=== PATIENT | male | born 2000 | race American Indian/Alaskan Native ===

== ENCOUNTER 2019-07-27 14:26 | Emergency (ER) | payer SELFPAY ==
--- NOTE | 2019-07-27 16:52 | Emergency Department Report ---
ED General Adult HPI - General Chief complaint: Psych Stated complaint: SI ATTEMPT Time Seen by Provider: 07/27/19 15:59 Source: EMS Mode of arrival: Ambulatory Limitations: No Limitations - History of Present Illness Initial comments: This is a 19-year-old man who lives with his mother. Apparently she must of called the police when he was found in the closet with a all collar around his neck I am told. Apparently he had a half empty bottle of ibuprofen. He admits to taking 4 pills. He also states that he drank half a bottle of DayQuil. He admits to depression for some time. He states he does not want to hurt himself now but apparently had some attempt prior. He denies any previous psychiatric hospitalizations. He denies counseling. He denies related medications. He denies any medical history. He is asymptomatic at the time of my encounter. -: month(s) Severity scale (0 -10): 0 Associated Symptoms: denies other symptoms - Related Data Allergies Allergy/AdvReac Type Severity Reaction Status Date / Time No Known Allergies Allergy Unverified 07/27/19 16:33 ED Review of Systems ROS: Stated complaint: SI ATTEMPT Other details as noted in HPI Constitutional: denies: chills, fever Eyes: denies: eye pain, eye discharge, vision change ENT: denies: ear pain, throat pain Respiratory: denies: cough, shortness of breath, wheezing Cardiovascular: denies: chest pain, palpitations Endocrine: no symptoms reported Gastrointestinal: denies: abdominal pain, nausea, diarrhea Genitourinary: denies: urgency, dysuria Musculoskeletal: denies: back pain, joint swelling, arthralgia Skin: denies: rash, lesions Neurological: denies: headache, weakness, paresthesias Psychiatric: depression, suicidal thoughts. denies: anxiety Hematological/Lymphatic: denies: easy bleeding, easy bruising ED Past Medical Hx - Past Medical History Previous Medical History?: No - Surgical History Past Surgical History?: No - Social History Smoking Status: Never Smoker Substance Use Type: None ED Physical Exam - General Limitations: No Limitations General appearance: alert, in no apparent distress - Head Head exam: Present: atraumatic, normocephalic - Eye Eye exam: Present: normal appearance. Absent: scleral icterus - ENT ENT exam: Present: mucous membranes moist - Neck Neck exam: Present: normal inspection. Absent: tenderness, meningismus - Respiratory Respiratory exam: Present: normal lung sounds bilaterally. Absent: respiratory distress - Cardiovascular Cardiovascular Exam: Present: regular rate, normal rhythm. Absent: systolic murmur, diastolic murmur, rubs, gallop - GI/Abdominal GI/Abdominal exam: Present: soft, normal bowel sounds. Absent: distended, tenderness, guarding, rebound, rigid - Rectal Rectal exam: Present: deferred - Extremities Exam Extremities exam: Present: normal inspection - Back Exam Back exam: Present: normal inspection - Neurological Exam Neurological exam: Present: alert, oriented X3, CN II-XII intact. Absent: motor sensory deficit - Psychiatric Psychiatric exam: Present: depressed, flat affect - Skin Skin exam: Present: warm, dry, intact, normal color. Absent: rash ED Course Vital Signs 07/27/19 15:30 Temperature 98.1 F Pulse Rate 69 Respiratory 16 Rate Blood Pressure 109/66 [Right] O2 Sat by Pulse 99 Oximetry - Reevaluation(s) Reevaluation #1: 1013 is executed. It is anticipated that the patient will be medically cleared. He is clinically stable at this time. 07/27/19 16:51 ED Medical Decision Making - Lab Data Result diagrams: 07/27/19 16:53 07/27/19 16:53 Laboratory Results - last 24 hr 07/27/19 07/27/19 07/27/19 16:33 16:33 16:53 WBC 7.2 RBC 4.17 Hgb 12.9 Hct 38.1 MCV 91 MCH 31 MCHC 34 RDW 12.4 L Plt Count 281 Lymph % (Auto) 20.8 Iron % (Auto) 4.9 Eos % (Auto) 0.1 Baso % (Auto) 0.5 Lymph # 1.5 Iron # 0.4 Eos # 0.0 Baso # 0.0 Seg Neutrophils % 73.7 H Seg Neutrophils # 5.3 Sodium Potassium Chloride Carbon Dioxide Anion Gap BUN Creatinine Estimated GFR BUN/Creatinine Ratio Glucose Calcium Magnesium Total Bilirubin Direct Bilirubin Indirect Bilirubin AST ALT Alkaline Phosphatase Total Protein Albumin Albumin/Globulin Ratio Urine Color Yellow Urine Turbidity Clear Urine pH 5.0 Ur Specific [place] 1.034 H Urine Protein 100 mg/dl Urine Glucose (UA) Neg Urine Ketones Tr Urine Blood Mod Urine Nitrite Neg Urine Bilirubin Neg Urine Urobilinogen < 2.0 Ur Leukocyte Esterase Neg Urine WBC (Auto) 4.0 Urine RBC (Auto) 16.0 U Epithel Cells (Auto) < 1.0 Hyaline Casts 2 Urine Mucus 3+ Salicylates Urine Opiates Screen Presumptive negative Urine Methadone Screen Presumptive negative Acetaminophen Ur Barbiturates Screen Presumptive negative Ur Phencyclidine Scrn Presumptive negative Ur Amphetamines Screen Presumptive negative U Benzodiazepines Scrn Presumptive negative Urine Cocaine Screen Presumptive negative U Marijuana (THC) Screen Presumptive negative Drugs of Abuse Note Disclamer Plasma/Serum Alcohol 07/27/19 07/27/19 07/27/19 16:53 16:53 16:53 WBC RBC Hgb Hct MCV MCH MCHC RDW Plt Count Lymph % (Auto) Iron % (Auto) Eos % (Auto) Baso % (Auto) Lymph # Iron # Eos # Baso # Seg Neutrophils % Seg Neutrophils # Sodium 142 Potassium 3.6 Chloride 105.4 Carbon Dioxide 22 Anion Gap 18 BUN 12 Creatinine 0.9 Estimated GFR > 60 BUN/Creatinine Ratio 13 Glucose 69 L Calcium 9.5 Magnesium 2.10 Total Bilirubin 0.30 Direct Bilirubin < 0.2 Indirect Bilirubin 0.1 AST 26 ALT 26 Alkaline Phosphatase 65 Total Protein 7.7 Albumin 4.0 Albumin/Globulin Ratio 1.1 Urine Color Urine Turbidity Urine pH Ur Specific [place] Urine Protein Urine Glucose (UA) Urine Ketones Urine Blood Urine Nitrite Urine Bilirubin Urine Urobilinogen Ur Leukocyte Esterase Urine WBC (Auto) Urine RBC (Auto) U Epithel Cells (Auto) Hyaline Casts Urine Mucus Salicylates < 0.3 L Urine Opiates Screen Urine Methadone Screen Acetaminophen Ur Barbiturates Screen Ur Phencyclidine Scrn Ur Amphetamines Screen U Benzodiazepines Scrn Urine Cocaine Screen U Marijuana (THC) Screen Drugs of Abuse Note Plasma/Serum Alcohol 07/27/19 07/27/19 16:53 16:53 WBC RBC Hgb Hct MCV MCH MCHC RDW Plt Count Lymph % (Auto) Iron % (Auto) Eos % (Auto) Baso % (Auto) Lymph # Iron # Eos # Baso # Seg Neutrophils % Seg Neutrophils # Sodium Potassium Chloride Carbon Dioxide Anion Gap BUN Creatinine Estimated GFR BUN/Creatinine Ratio Glucose Calcium Magnesium Total Bilirubin Direct Bilirubin Indirect Bilirubin AST ALT Alkaline Phosphatase Total Protein Albumin Albumin/Globulin Ratio Urine Color Urine Turbidity Urine pH Ur Specific [place] Urine Protein Urine Glucose (UA) Urine Ketones Urine Blood Urine Nitrite Urine Bilirubin Urine Urobilinogen Ur Leukocyte Esterase Urine WBC (Auto) Urine RBC (Auto) U Epithel Cells (Auto) Hyaline Casts Urine Mucus Salicylates Urine Opiates Screen Urine Methadone Screen Acetaminophen 13.5 Ur Barbiturates Screen Ur Phencyclidine Scrn Ur Amphetamines Screen U Benzodiazepines Scrn Urine Cocaine Screen U Marijuana (THC) Screen Drugs of Abuse Note Plasma/Serum Alcohol < 0.01 Critical care attestation.: If time is entered above; I have spent that time in minutes in the direct care of this critically ill patient, excluding procedure time. ED Disposition Clinical Impression: Suicidal ideation Depression Qualifiers: Depression Type: unspecified Qualified Code(s): F32.9 - Major depressive disorder, single episode, unspecified Disposition: [id number]/[id number] PSY HOSP/PSY UNIT Is pt being admited?: No Does the pt Need Aspirin: No Condition: Stable Time of Disposition: 22:00
[2019-07-27 16:59] LABS: Bilirubin,Urine NEG (Negative); Blood,Urine MOD (Negative); Color,Urine Yellow (Yellow); Hyaline Casts,Urine 2 /LPF; Mucus,Urine 3+ /HPF; Urobilinogen,Urine < 2.0 mg/dL (<2.0)
[2019-07-27 17:01] LABS: Amphetamine Screen,Urine PRESUMPTIVE NEGATIVE; Benzodiazepines Screen,Urine PRESUMPTIVE NEGATIVE; Cannabinoid Screen,Urine PRESUMPTIVE NEGATIVE; Cocaine Screen,Urine PRESUMPTIVE NEGATIVE; Methadone Screen,Urine PRESUMPTIVE NEGATIVE; Opiate Screen,Urine PRESUMPTIVE NEGATIVE
[2019-07-27 17:05] LABS: Basophils % (Auto) 0.5 % (0.0-1.8); Eosinophils % (Auto) 0.1 % (0.0-4.3); Hematocrit 38.1 % (35.5-45.6); Hemoglobin 12.9 gm/dl (11.8-15.2); Lymphocytes # (Auto) 1.5 K/mm3 (1.2-5.4); Lymphocytes % (Auto) 20.8 % (13.4-35.0); Mean Corpuscular HGB Conc 34 % (32-34); Mean Corpuscular Volume 91 fl (84-94); Monocytes # (Auto) 0.4 K/mm3 (0.0-0.8); Monocytes % (Auto) 4.9 % (0.0-7.3); Platelet Count 281 K/mm3 (140-440); Red Blood Count 4.17 M/mm3 (3.65-5.03); Red Cell Distribution Width 12.4 % (13.2-15.2)
[2019-07-27 17:23] LABS: BUN/Creatinine Ratio 13; Blood Urea Nitrogen 12 mg/dL (9-20); Calcium 9.5 mg/dL (8.4-10.2); Hemolysis Index 3
[2019-07-27 17:25] LABS: Alanine Aminotransferase 26 units/L (7-56)
[2019-07-27 17:27] LABS: Bilirubin,Direct < 0.2 mg/dL (0-0.2)
[2019-07-27] MEDS ORDERED: ALUM-MAG HYDROXIDE-SIMETHICONE 200-200-20MG/5ML ORAL LIQD 30 ML PO PRN (22:02)
[2019-07-27] MEDS ORDERED: MAGNESIUM HYDROXIDE (MOM) ORAL LIQD UDC PO PRN (22:02)
[2019-07-27] MEDS ORDERED: ACETAMINOPHEN 325 MG TAB PO PRN (22:02)
--- NOTE | 2019-07-28 11:03 | Consultation ---
History of Present Illness - Reason for Consult Consult date: 07/28/19 Reason for consult: Initial Psychiatric Evaluation - Chief Complaint Chief complaint: " I let stuff get the best of me." - History of Present Psychiatric Illness Patient is a 19-year-old male who presents to the emergency room after a suicide attempt. Patient lives with his mother. Patient's mother called the police when he was found in the closet with a purse strap wrapped around his neck I am told. Apparently he had a half empty bottle of ibuprofen. He admits to taking 4 pills. He also states that he drank half a bottle of Day Quil. He admits to multiple stressors. Patient denies any past psychiatric history. Today the patient is calm and cooperative during the assessment. He verbalizes that he was recently incarcerated for 3 years for robbery. Since he has been released from retirement in October he has not been able to maintain steady employment. He reports intermittent periods of poor impulse control and mood fluctuations. He denies anhedonia, decrease sleep, decrease appetite, and decrease energy, auditory/visual hallucinations, and delusions. Current Psychiatric Medications: Patient denies. Past Psychiatric History: No previous psychiatric diagnosis; no previous inpatient psychiatric hospitalizations; no outpatient psychiatrist; no previous suicide attempts other than the most current. Past Medication Trials: Patient denies. History of Trauma/Abuse: Patient denies trauma; Patient denies sexual, physical, and mental abuse. History of Drug/Alcohol Abuse: Patient denies drug/alcohol abuse. UDS negative. Social History: GED; lives with mother in [place], [place]; Probation for 8 years; no children; in relationship x 11 months; no source of income. Family History of Psychiatric Illness/Substance Abuse: Patient denies. Medications and Allergies Allergies Allergy/AdvReac Type Severity Reaction Status Date / Time No Known Allergies Allergy Unverified 07/27/19 16:33 Home Medications Medication Instructions Recorded Confirmed Last Taken Type No Known Home Medications [No 07/27/19 07/27/19 Unknown History Reported Home Medications] Active Meds: Active Medications Acetaminophen (Tylenol) 650 mg PO Q4HR PRN PRN Reason: Pain MILD(1-3)/Fever >100.5/DODD Al Hydrox/Mg Hydrox/Simethicone (Alum-Mag Hydrox-Simeth [id number]/5ml) 30 ml PO Q4HR PRN PRN Reason: Indigestion Magnesium Hydroxide (Milk Of Magnesia) 30 ml PO Q12HR PRN PRN Reason: Constipation Mental Status Exam - Vital signs Last Vital Signs Temp 98.4 F 07/28/19 07:00 Pulse 62 07/28/19 07:00 Resp 18 07/28/19 07:00 BP 124/68 07/28/19 07:00 Pulse Ox 99 07/28/19 07:00 - Exam Narrative exam: Mental Status Exam: Appearance: calm, cooperative Behavior: regular eye contact Speech: regular rate and tone Mood: "I feel great" Affect: constricted Thought Process: organized; logical Thought Content: Patient denies SI/HI's, A/VH's, and delusions Cognition: A/O x 3 Insight: variable Judgment: variable Results Result Diagrams: 07/27/19 16:53 07/27/19 16:53 Abnormal lab results 07/27/19 07/27/19 07/27/19 Range/Units 16:33 16:53 16:53 RDW 12.4 L (13.2-15.2) % Seg Neutrophils % 73.7 H (40.0-70.0) % Glucose 69 L (75-100) mg/dL Ur Specific [place] 1.034 H (1.003-1.030) Salicylates (2.8-20.0) mg/dL 07/27/19 Range/Units 16:53 RDW (13.2-15.2) % Seg Neutrophils % (40.0-70.0) % Glucose (75-100) mg/dL Ur Specific [place] (1.003-1.030) Salicylates < 0.3 L (2.8-20.0) mg/dL All other labs normal. Assessment and Plan Assessment and plan: Impression: MDD, single episode without psychosis. Today the patient is calm and cooperative during the assessment. UDS negative. DDx: Mood Disorder, Bipolar Disorder Recommendation/Plan: 1. Will continue 1013. 2. At this time patient refuses medication. He prefers talk therapy. 3. Will attempt to gain collateral. Disposition: Will refer to inpatient psychiatric services. Will staffed with Dr. Dominguez.
--- NOTE | 2019-07-29 12:03 | Progress Note ---
Subjective - Reason for Consult Consult date: 07/29/19 Reason for consult: Psychiatric Follow-up Evaluation - Chief Complaint Chief complaint: "I just want to go home " Patient is a 19-year-old male who presents to the emergency room after a suicide attempt. Today the patient is calm and cooperative during the assessment. He reveals that his girlfriend may be expecting a baby therefore he needs to return home . He reports appropriate sleep and appetite. He reports " I've learned never to hurt myself again. I do not like this experience it reminds me too much of being in care home." He denies SI/HI's, A/VH's, and delusions. Mental Status Exam - Vital signs Last Vital Signs Temp 98.0 F 07/29/19 07:00 Pulse 54 L 07/29/19 07:00 Resp 18 07/29/19 07:00 BP 132/62 07/29/19 07:00 Pulse Ox 98 07/29/19 07:00 - Exam Narrative exam: Mental Status Exam: Appearance: calm, cooperative Behavior: regular eye contact Speech: regular rate and tone Mood: "I'm ready to go home" Affect: constricted Thought Process: organized; logical Thought Content: Patient denies SI/HI's, A/VH's, and delusions Cognition: A/O x 3 Insight: variable Judgment: variable Assessment and Plan Impression: MDD, single episode without psychosis. Today the patient is calm and cooperative during the assessment. He denies SI/HI's, A/VH's, and delusions. UDS negative. DDx: Mood Disorder, Bipolar Disorder Recommendation/Plan: 1. Will continue 1013. 2. Patient continues to refuse medication. He prefers talk therapy at this time. 3. Will attempt to gain collateral. Collateral must be obtained prior to discharge. Disposition: Will refer to inpatient psychiatric services. If patient's 1013 is rescinded, patient will follow-up at the [facility]. Will staff with Dr. Dominguez.
[2019-07-29 19:33] VITALS: BP 123/75
== END 2019-07-29 21:54 ==
LOC: EEVIPCON 14:26 → ED 14:26
DX: F32.2 Major depressive disorder, single episode, severe without psychotic features (principal)
CPT/HCPCS: 36415; 80048; 80076; 80307; 80320; 81001; 82962; 83735; 85025; 93005; 93010; G0480